=== PATIENT | male | born 1965 | race Caucasian/White ===

== ENCOUNTER 2023-03-14 07:45 | Emergency (ER) | payer MEDICAID ==
[~2023-03-14] VITALS: Ht 175.3 cm; Wt 68.0 kg
[2023-03-14 08:48] VITALS: BP 118/80; TEMP 98; O2SAT 99
== END 2023-03-14 08:49 | disposition home or self-care (01) ==
LOC: ER 07:58
DX: S61.012S Laceration without foreign body of left thumb without damage to nail, sequela (principal); X58.XXXS Exposure to other specified factors, sequela
CPT/HCPCS: A4606; A4663